=== PATIENT | female | born 1970 | race Caucasian/White ===

== ENCOUNTER 2020-08-09 07:03 | Emergency (ER) | payer BC, SELFPAY ==
--- NOTE | ~2020-08-09 | CT_ITS ---
EXAMINATION: CTA BRAIN/CAROTID DATE: 08/09/2020 07:25 INDICATION: Stroke with vision and balance disturbances and right arm numbness. TECHNIQUE: Computed tomographic angiography (CTA) of the head and neck was performed with 100 mL Omni paque-350 intravenous contrast. Multiplanar reconstructions and maximum intensity projection 3D-recon structions of the carotid arteries and of the intracranial arteries were created by the technologist on a separate workstation. Precontrast CT of the head was also obtained. Automated exposure control and iterative reconstruction technique were employed.The dose-length product was 1499.96 mGy-cm. COMPARISON: None. FINDINGS: Carotid arteries: There is 0% stenosis of the right carotid bulb relative to normal distal artery lumen diameter (NASCE T criteria). Atherosclerotic plaque resulting in 50% stenosis of the left carotid bulb relative to no rmal distal artery lumen diameter. The cephalad margin of the plaque demonstrates contrast surroundin g an approximately 2.5-3 mm diameter 1 cm long fingerlike extension of what may be more acute thrombu s centrally within the lumen of the proximal cervical internal carotid artery. Cervical soft tissues are unremarkable. Bilateral upper lung zones are clear. Mild cervical spondylosis. Head: No acute intracranial hemorrhage, acute infarction or abnormal extra axial fluid collection. Ventricl es are normal and symmetric. No mass/mass effect. Mucous retention cyst in the left maxillary sinus. The orbits and mastoid air cells are normal. Intracranial arteries There is no hemodynamically significant stenosis or thrombosis in the intracranial vertebral, basilar and internal carotid arteries. Left vertebral artery is dominant. There are no aneurysms identified. The right P1 and bilateral A1 segments are patent. The left posterior cerebral artery appears to be supplied exclusively by a patent left posterior communicating artery. Cerebral arterial arborization appears symmetric. IMPRESSION: 1. 0% stenosis of the right carotid bulb relative to normal distal artery lumen diameter (NASCET crit eria). 2. 50% stenosis of the left carotid bulb relative to normal distal artery lumen diameter with centime ter long fingerlike extension of what may be more acute thrombus centrally within the lumen of the pr oximal cervical internal carotid artery and which raises concern for additional potential infarcts. Francisca Rivera discussed these findings with Dr. Bauman at 7:25 AM. 3. Normal appearing brain and cerebral angiogram with no evident thrombosis or hemodynamically signif icant stenosis. Reviewed, dictated and finalized at location A. IMPRESSION: 1. 0% stenosis of the right carotid bulb relative to normal distal artery lumen diameter (NASCET criteria). 2. 50% stenosis of the left carotid bulb relative to normal distal artery lumen diameter with centimeter long fingerlike extension of what may be more acute t hrombus centrally within the lumen of the proximal cervical internal carotid ar benja and which raises concern for additional potential infarcts. Dr. Nicole melara iscussed these findings with Dr. Bauman at 7:25 AM. 3. Normal appearing brain and cerebral angiogram with no evident thrombosis or hemodynamically significant stenosis.
--- NOTE | ~2020-08-09 | XR_ITS ---
EXAMINATION: XR chest 1V portable DATE: 08/09/2020 07:43 INDICATION: Stroke TECHNIQUE: frontal view of the chest was obtained. COMPARISON: None FINDINGS: The lungs are clear with no focal airspace opacities, pulmonary edema, pleural effusion or pneumothor ax. The cardiomediastinal silhouette is normal. Visualized bones and soft tissues are unremarkable. IMPRESSION: 1. No acute cardiopulmonary disease. Reviewed, dictated and finalized at location A.
--- NOTE | 2020-08-09 07:07 | ECG_ITS ---
Measurements Intervals [place] Rate: 95 P: 36 [place]: 110 QRS: 62 QRSD: 83 T: 46 QT: 348 QTc: 438 Interpretive Statements SINUS RHYTHM WITH SHORT [place] INTERVAL BASELINE ARTIFACT- I, II, AVR BORDERLINE ECG Electronically Signed On 08-09-2020 8:54:16 CDT by Neel Burnett D.O.
[2020-08-09 07:30] VITALS: BP 137/78; PULSE 122; RESP 15; TEMP 36.8; O2SAT 99
--- NOTE | 2020-08-09 07:40 | ED.NEUROSD ---
HPI - Neuro Symptoms/Deficit General Chief Complaint: Suspected CVA Stated Complaint: Vision/balance/right arm numbness Time Seen by Provider: 08/09/20 07:08 Source: patient Mode of arrival: ambulatory Limitations: no limitations History of Present Illness HPI Narrative: Patient is a 50-year-old female complaining of right upper extremity numbness that started yesterday, worse this morning accompanied by blurred vision in the right eye and difficulty speaking. Patient states that the visual disturbance and the difficulty speaking is resolved but continues to have numbness and slight weakness of her right upper extremity Related Data Allergies Allergy/AdvReac Type Severity Reaction Status Date / Time No Known Allergies Allergy Mild Verified 08/09/20 07:04 naproxen Allergy Unknown Unknown Verified 08/09/20 07:04 Review of Systems Review of Systems: All systems reviewed & are unremarkable except as noted in HPI and below Constitutional: Constitutional: Denies body ache(s), Denies chills, Denies excessive sweating, Denies fatigue, Denies fever(s), Denies headache(s), Denies lethargy, Denies malaise, Denies weakness and Denies weight loss Eyes: Eyes: Denies blurry vision, Denies change in vision and Denies loss of vision ENT: Denies dizziness, Denies ear discharge, Denies headache(s), Denies lip swelling, Denies epistaxis, Denies nasal congestion, Denies neck pain, Denies throat swelling and Denies tongue swelling Cardiovascular: Cardiovascular: Denies chest pain, Denies chest pain at rest, Denies chest pain with activity, Denies diaphoresis, Denies rapid heart rate, Denies edema, Denies irregular heart rhythm, Denies lightheadedness, Denies palpitations, Denies dyspnea and Denies dyspnea on exertion Respiratory: Respiratory: Denies chest congestion, Denies cough, Denies hemoptysis, Denies dyspnea and Denies dyspnea on exertion Gastrointestinal: Gastrointestinal: Denies abdominal pain, Denies melena, Denies hematochezia, Denies diarrhea, Denies nausea, Denies vomiting and Denies hematemesis Musculoskeletal: Musculoskeletal: Denies abnormal gait, Denies deformity, Denies joint swelling, Denies limited range of motion, Denies neck pain and Denies numbness Neurologic: Denies Abnormal speech present, Denies abnormal gait, Denies confusion, Denies dizziness, Denies headache(s), Denies loss of vision and Denies weakness Psychiatric: Psychiatric: Denies confusion, Denies depression, Denies auditory hallucinations, Denies homicidal ideation and Denies suicidal ideation Endocrine: Endocrine: Denies cold intolerance, Denies excessive sweating, Denies fatigue, Denies heat intolerance and Denies palpitations Hematologic/Lymphatic: Hematologic/Lymphatic: Denies easy bleeding and Denies easy bruising Allergic/Immunologic: Allergic/Immunologic: Denies lip swelling, Denies throat swelling and Denies tongue swelling PMFSH Family History Family History (Updated 01/30/16 @ 13:20 by DOCTOR UNKNOWN) Mother Hypertension Social History Social History Smoking status: Current every day smoker Alcohol intake: current Comments Past medical history: Anxiety Family history: Negative for CVA Social history: Positive for smoker, occasional EtOH use, negative for drug use Exam Const: General: cooperative, healthy appearing, comfortable, no acute distress, well developed, alert and awake; No confusion Orientation/consciousness: oriented to person, oriented to place, oriented to time, patient oriented x3 and No confusion Limitations: no limitations Other: Abnormal ofexeh-ly-demg test right upper extremity, numbness right upper extremity, decreased sensation right upper extremity HENMT: Head: normal to inspection, normocephalic and atraumatic Ears: hearing grossly normal bilaterally, TM normal on the right and TM normal on the left General nose exam: Normal external nose present, Normal nares present and No nasal discharge present Face and sinus: n
[2020-08-09 07:56] LABS: Basophils Percent Auto 0.5 % (0.2-1.2); Eosinophils Absolute Auto 0.1 K/mm3 (0-0.3); Hematocrit 47.7 % (37.0-47.0); Hemoglobin 15.9 g/dL (12.0-15.0); Immature Granulocyte Absolute 0.02 K/mm3 (0.00-0.031); Immature Granulocyte Percent A 0.3 % (0-0.5); Lymphocytes Percent Auto 29.8 % (18.3-44.2); Mean Corpuscular HGB Conc 33.3 g/dl (32-36); Mean Corpuscular Hemoglobin 32.3 pg (26-34); Mean Platelet Volume 9.3 fl (7.4-10.4); Monocytes Absolute Auto 0.6 K/mm3 (0.1-0.6); Monocytes Percent Auto 9.7 % (2.6-8.5); Neutrophils Absolute Auto 3.7 K/mm3 (1.3-6.7); Neutrophils Percent Auto 57.7 % (45.5-73.1); Platelet Count Result 164 k/mm3 (150-375); Red Blood Count 4.92 M/mm3 (4.2-5.4); Red Cell Distribution Width 12.8 % (11.5-14.5); White Blood Count 6.4 K/mm3 (4.5-10.0)
[2020-08-09 08:00] VITALS: BP 136/88; PULSE 112; RESP 14; O2SAT 96
[2020-08-09 08:01] LABS: Anion Gap 7 mmol/L (8-16); Blood Urea Nitrogen 11 mg/dL (7-17); Calcium 9.2 mg/dL (8.4-10.2); Carbon Dioxide 25 mmol/L (22-30); Chloride 106 mmol/L (98-107); Estimated CRCL calculation 79 ml/min; Estimated Glomerular Filt Rate > 60; Glucose 110 mg/dL (65-105); Potassium 4.1 mmol/L (3.4-5.0); Sodium 138 mmol/L (137-145)
[2020-08-09 08:11] LABS: INR 1.1; Prothrombin Time 14.3 Seconds (11.1-14.7)
[2020-08-09 08:12] LABS: Partial Thromboplastin Time 29.6 SECONDS (22.3-36.8); Troponin I < 0.012 ng/mL (0.000-0.034)
[2020-08-09] MEDS: HEPARIN SOD/D5W 100 UNITS/ML 25,000 UNITS/250 ML BAG 12 UNITS IV CONT (08:19)
--- NOTE | 2020-08-09 08:30 | PC.NURSE ---
Report called to [facility] at [facility] ([phone]), accepted under Dr. Chisholm. Heparin drip started at 12ml/hr (NO bolus per Dr. Willett). Pt awake, anxious, non-labored respirations. Pt and updated on POC
--- NOTE | 2020-08-09 08:33 | PC.NURSE ---
air-vac not flying due to weather. [id number]
[2020-08-09 08:35] VITALS: BP 140/94; PULSE 97; RESP 20; O2SAT 96
--- NOTE | 2020-08-09 08:37 | PC.NURSE ---
[facility] here for transport to [facility], has x1 belonging bag. Pt awake, anxious, non-labored respirations. Denies CP/SOB, heparin drip running @12ml/hr
== END 2020-08-09 08:45 | disposition short-term general hospital (02) ==
PROVIDERS: Emergency Medicine; Emergency Provider Emergency Medicine; PCP Family Medicine
DX: I63.9 Cerebral infarction, unspecified (principal); R29.702 NIHSS score 2; F17.200 Nicotine dependence, unspecified, uncomplicated; R94.31 Abnormal electrocardiogram [ECG] [EKG]
CPT/HCPCS: 36415; 70496; 70498; 71045; 80048; 81025; 84484; 85025; 85610; 85730; 93005; 96365; 99285; J1644; Q9967